=== PATIENT | female | born 1955 | race Caucasian/White ===

== ENCOUNTER 2020-05-29 20:23 | Emergency (ER) | payer MEDICARE, OTHER ==
[~2020-05-29] VITALS: Ht 157.5 cm; Wt 67.1 kg
[~2020-05-29 20:23] MED LIST: ACET500 PO; ASCO500 PO; ASPI81CH PO; BENTYL10 MG PO; CALCAVITD PO; CHLO25B PO; CHOL10002 PO; CYCL10 PO; Coq-10100 MG PO; D3-5050000 UNIT PO; DEXL60CA3 PO; DHEA; DHEA PO; DICL75ER PO; DOXY100; DOXY100 PO; ESTEST.62T PO; FISH1000 PO; HORMONE PILL; HYDACE5 PO; IBUP600 PO; IBUP800; LEVSOD50 PO; LISI20 PO; LOSA50 PO; MELO7.5 PO; META800; META800 PO; METF500C PO; NAPR500 PO; NIAC500 PO; OMEP10ER PO; RXCYCL10 PO; SIMV10 PO; SIMV40 PO; STOMACH PILL; Super B Comple150 MG PO; TOCO400 PO; UBID10
== END 2020-05-29 22:36 | disposition home or self-care (01) ==
LOC: ER 20:23
DX: H61.21 Impacted cerumen, right ear (principal); Z79.899 Other long term (current) drug therapy; Z79.82 Long term (current) use of aspirin; Z79.84 Long term (current) use of oral hypoglycemic drugs
CPT/HCPCS: 99283

== ENCOUNTER 2023-11-28 05:47 | Emergency (ER) | payer MEDICARE, OTHER ==
[~2023-11-28] VITALS: Ht 170.2 cm; Wt 79.4 kg
[2023-11-28 06:04] LABS: BASOPHILS ABSOLUTE AUTO 0.02 K/mm3 (0.00-0.23); BASOPHILS PERCENT AUTO 0 % (0-2); EOSINOPHILS ABSOLUTE AUTO 0.01 K/mm3 (0.00-0.68); EOSINOPHILS PERCENT AUTO 0 % (0-6); Hematocrit 44.2 % (33.0-51.0); Hemoglobin 14.9 g/dL (11.5-16.0); IMMATURE GRAN ABSOLUTE AUTO 0.04 K/mm3 (0.00-0.10); IMMATURE GRAN PERCENT AUTO 0 % (0-1); LYMPHOCYTES ABSOLUTE AUTO 0.87 K/mm3 (0.84-5.20); LYMPHOCYTES PERCENT AUTO 8 % (21-46); MONOCYTES ABSOLUTE AUTO 1.28 K/mm3 (0.16-1.47); MONOCYTES PERCENT AUTO 12 % (4-13); Mean Corpuscular HGB 31.6 pg (26.0-34.0); Mean Corpuscular HGB Conc 33.7 g/dL (31.5-36.5); Mean Corpuscular Volume 94 fL (80-100); Mean Platelet Volume 9.4 fL (9.1-12.4); NEUTROPHILS ABSOLUTE AUTO 8.37 K/mm3 (1.96-9.15); NEUTROPHILS PERCENT AUTO 79 % (41-73); Platelet Count 265 K/mm3 (150-400); RDW Standard Deviation 41.6 fL (35.1-46.3); Red Blood Cell Count 4.71 M/mm3 (3.80-5.20); White Blood Cell Count 10.59 K/mm3 (4.00-11.30)
[2023-11-28 06:25] LABS: Anion Gap 2 mmol/L (6-16); Blood Urea Nitrogen 14 mg/dL (8-24); Bun/Creatinine Ratio 20.8 (12.0-20.0); CO2, Blood 24 mmol/L (21-32); Calcium, Blood 9.3 mg/dL (8.5-10.1); Chloride, Blood 116 mmol/L (98-108); Creatinine, Blood 0.67 mg/dL (0.40-1.00); Ethanol (Alcohol), Blood, Med <3 mg/dL; Glomerular Filtration Rate 94 (60-); Glucose, Blood 114 mg/dL (70-99); Potassium, Blood 4.4 mmol/L (3.5-5.5); Sodium, Blood 142 mmol/L (136-145)
[2023-11-28] MEDS ORDERED: NiCARdipine HCL 25 MG in NS 250 ML IV SCH (06:30)
[2023-11-28 06:58] LABS: International Normalized Ratio 1.01; Prothrombin Time Results 10.6 Sec (9.7-11.5)
[2023-11-28] MEDS ORDERED: Lactated Ringer's 1,000 ML IV ONE (07:40)
[2023-11-28 08:19] VITALS: BP 154/76
== END 2023-11-28 08:30 | disposition short-term general hospital (02) ==
LOC: ER 05:47
PROVIDERS: Emergency Medicine
DX: I66.02 Occlusion and stenosis of left middle cerebral artery (principal)
CPT/HCPCS: 51702; 70450; 70496; 70498; 80048; 85025; 85610; 85730; 96361-59; 96374-59; 99285-25; J7050; J7120; Q9967